=== PATIENT | female | born 1990 | race American Indian/Alaskan Native ===

== ENCOUNTER 2020-06-19 19:35 | Emergency (ER) | payer SELFPAY ==
[2020-06-19 22:53] VITALS: BP 105/75
[2020-06-20] MEDS ORDERED: IBUPROFEN 600 MG TAB PO ONE (00:14)
--- NOTE | 2020-06-20 00:18 | Emergency Department Report ---
ED ENT HPI - General Chief complaint: Earache Stated complaint: BILATERAL EAR PAIN Time Seen by Provider: 06/20/20 00:13 Source: patient Mode of arrival: Ambulatory Limitations: No Limitations - History of Present Illness Initial comments: 28-year-old female presents to the emergency room for bilateral ear pain x5 days. Patient states that she was seen at [facility] yesterday and was placed on oral antibiotics of clindamycin. Patient states that there is something still wrong with her ear. Patient has not taken anything for pain. S he reports her pain is a 10 out of 10. She denies any fever chills no nausea no vomiting no headache. complaint: ear pain Onset/Timin -: days(s) Location: R ear, L ear Severity: severe Severity scale (0 -10): 10 Consistency: constant Improves with: none Worsens with: other (Touching her ears) Associated Symptoms: hearing loss, discharge from ear - Related Data Previous Rx's Medication Instructions Recorded Last Taken Type Ibuprofen [Motrin 600 MG tab] 600 mg PO Q8H PRN #30 tablet 06/20/20 Unknown Rx Neomy/Polymyx B/Hc (Otic) Soln 4 drops AU TID 10 Days bottle 06/20/20 Unknown Rx [Cortisporin (Otic) Soln] Allergies Allergy/AdvReac Type Severity Reaction Status Date / Time No Known Allergies Allergy Unverified 06/19/20 22:56 ED Dental HPI - General Chief complaint: Earache Stated complaint: BILATERAL EAR PAIN Time Seen by Provider: 06/20/20 00:13 Source: patient Mode of arrival: Ambulatory Limitations: No Limitations - Related Data Previous Rx's Medication Instructions Recorded Last Taken Type Ibuprofen [Motrin 600 MG tab] 600 mg PO Q8H PRN #30 tablet 06/20/20 Unknown Rx Neomy/Polymyx B/Hc (Otic) Soln 4 drops AU TID 10 Days bottle 06/20/20 Unknown Rx [Cortisporin (Otic) Soln] Allergies Allergy/AdvReac Type Severity Reaction Status Date / Time No Known Allergies Allergy Unverified 06/19/20 22:56 ED Review of Systems ROS: Stated complaint: BILATERAL EAR PAIN Other details as noted in HPI Comment: All other systems reviewed and negative ED Past Medical Hx - Past Medical History Previous Medical History?: No - Surgical History Past Surgical History?: Yes Additional Surgical History: Hysterectomy - Social History Smoking Status: Current Every Day Smoker Substance Use Type: None - Medications Home Medications: Home Medications Medication Instructions Recorded Confirmed Last Taken Type Ibuprofen [Motrin 600 MG tab] 600 mg PO Q8H PRN #30 tablet 06/20/20 Unknown Rx Neomy/Polymyx B/Hc (Otic) Soln 4 drops AU TID 10 Days bottle 06/20/20 Unknown Rx [Cortisporin (Otic) Soln] ED Physical Exam - General Limitations: No Limitations General appearance: alert, in no apparent distress - Head Head exam: Present: atraumatic, normocephalic - Eye Eye exam: Present: normal appearance - Expanded ENT Exam Expanded TM/Canal exam: Erythema: Right TM, Left TM, Canal Discharge: Right TM, Left TM, Canal Tenderness: Right TM, Left TM - Neck Neck exam: Present: normal inspection, full ROM - Neurological Exam Neurological exam: Present: alert, oriented X3, normal gait - Psychiatric Psychiatric exam: Present: normal affect, normal mood - Skin Skin exam: Present: warm, dry, intact, normal color. Absent: rash ED Course Vital Signs 06/19/20 06/19/20 22:47 22:53 Temperature 98.5 F Pulse Rate 75 Respiratory 18 Rate Blood Pressure 105/75 O2 Sat by Pulse 100 Oximetry ED Medical Decision Making - Medical Decision Making 28-year-old female presents to the emergency room for bilateral ear pain x5 days. Patient states that she was seen at [facility] yesterday and was placed on oral antibiotics of clindamycin. Patient states that there is something still wrong with her ear. Patient has not taken anything for pain. She reports her pain is a 10 out of 10. She denies any fever chills no nausea no vomiting no headache. Patient appears to have bilateral otitis externa. Will write a prescription for Cortisporin otic eardrops for both ears. Patient be given ibuprofen for pain management here and instructed to she can complete the antibiotics and use the eardrops and get [id number] ibuprofen or Tylenol for pain management. Referral to ear nose and throat if no improvement. Critical care attestation.: If time is entered above; I have spent that time in minutes in the direct care of this critically ill patient, excluding procedure time. ED Disposition Clinical Impression: Bilateral otitis externa Disposition: [id number] TO HOME OR SELFCARE Is pt being admited?: No Does the pt Need Aspirin: No Condition: Stable Instructions: Otitis Externa (ED) Additional Instructions: Complete antibiotics as prescribed. Tylenol or ibuprofen as needed for pain man agement. If no improvement please follow-up with the bilingual research interviewer. Prescriptions: Neomy/Polymyx B/Hc (Otic) Soln [Cortisporin (Otic) Soln] 4 drops AU TID 10 Days bottle Ibuprofen [Motrin 600 MG tab] 600 mg PO Q8H PRN #30 tablet PRN Reason: Pain Referrals: PRIMARY CARE, [Primary Care Provider] - 3-[facility] [[facility]] - 3-5 Days ENT [facility] [Provider Group] - 3-5 Days
== END 2020-06-20 00:56 | disposition home or self-care (01) ==
LOC: ED 19:35
DX: H60.8X3 Other otitis externa, bilateral (principal); F17.200 Nicotine dependence, unspecified, uncomplicated; Z90.710 Acquired absence of both cervix and uterus; Z79.899 Other long term (current) drug therapy
CPT/HCPCS: 99282